=== PATIENT | female | born 1960 | race African-American/Black ===

== ENCOUNTER 2023-05-29 19:43 | Emergency (ER) | payer MEDICARE ==
[~2023-05-29] VITALS: Ht 177.8 cm; Wt 127.0 kg
[2023-05-29 19:54] VITALS: BP 182/102; TEMP 98.1; O2SAT 100
[2023-05-29 19:56] VITALS: PULSE 97; RESP 20
[2023-05-29] MEDS ORDERED: ACETAMINOPHEN 500MG TABLET PO ONE (21:00)
[2023-05-29] MEDS ORDERED: IBUP-2029 MT (22:58)
== END 2023-05-30 00:03 | disposition home or self-care (01) ==
LOC: ER 19:43
DX: M79.604 Pain in right leg (principal); F31.9 Bipolar disorder, unspecified; E11.9 Type 2 diabetes mellitus without complications; I10 Essential (primary) hypertension
CPT/HCPCS: 93971; 99284